=== PATIENT | female | born 1955 | race Caucasian/White ===

== ENCOUNTER 2017-10-04 12:16 | Day surgery (SDC) | payer OTHER ==
[~2017-10-04 12:16] MED LIST: ACETAMINOPHEN 325 MG TABLET (FP) PO PRN
[2017-10-04] MEDS: GENTAMICIN SULFATE 0.3% OPHTHALMIC (EYE DROPS) 5ML BOTTLE ONE ×5 (12:35→12:55)
[2017-10-04] MEDS: KETOROLAC TROMETHAMINE 0.5% 5 ML BOTTLE OPTHALMIC ONE ×5 (12:35→12:55)
[2017-10-04] MEDS: CYCLOPENTOLATE HCL 1% OPHTH SOLN 2 ML BOTTLE ONE ×5 (12:35→12:55)
[2017-10-04] MEDS: PHENYLEPHRINE 2.5% OPHTH SOLN 15 ML BOTTLE ONE ×5 (12:35→12:55)
[2017-10-04] MEDS: TROPICAMIDE 1% OPHTH SOLN 15 ML BOTTLE ONE ×5 (12:35→12:55)
[2017-10-04 12:43] VITALS: BMI 22.6
[2017-10-04] MEDS ORDERED: MIDAZOLAM HCL 2 MG/2 ML SINGLE DOSE VIAL ONE (13:06)
[2017-10-04] MEDS ORDERED: BUPIVACAINE HCL/PF 0.5% (5MG/ML) 10 ML VIAL ONE (13:19)
[2017-10-04] MEDS ORDERED: LIDOCAINE HCL/PF 2% SDV 5ML VIAL ONE ×2 (13:19→13:36)
[2017-10-04] MEDS ORDERED: LIDOCAINE HCL 2% JELLY 10 ML CARTRIDGE ONE (13:20)
[2017-10-04] MEDS ORDERED: PROPOFOL 20 ML ONE (13:36)
[2017-10-04] MEDS ORDERED: ACETYLCHOLINE 1:100 INTRA-OCUL 20 MG/2 ML KIT ONE (13:38)
[2017-10-04] MEDS ORDERED: TETRACAINE 0.5% OPHTH SOLN 2 ML BOTTLE ONE (13:40)
[2017-10-04 14:47] VITALS: TEMP 98
[2017-10-04 15:15] VITALS: BP 111/80; PULSE 59
--- NOTE | 2017-10-04 15:20 | OP ---
DATE OF OPERATION: 10/04/2017 PROCEDURE: Planned extracapsular cataract extraction, phacoemulsification, insertion of posterior chamber lens implant, right eye. SURGEON: Buddy Pugh MD ALARM SIGNAL OPERATOR: Buddy Pugh MD COMPLICATIONS: None. PREOPERATIVE DIAGNOSIS: Cataract, right eye. POSTOPERATIVE DIAGNOSIS: Cataract, right eye. FINDINGS, PROCEDURE: After successful peribulbar anesthesia was given to the right eye, the patient was prepped and draped in the usual manner to expose the right, with Tegaderm strips and a lid speculum inserted and then a microscope brought in position over the right eye. A superior fornix-based flap was then fashioned for 12 mm using Joe scissors and 0.12 forceps and hemostasis achieved with wet-field cautery. A limbal groove was fashioned for approximately 3 mm with a crescent blade, dissected anterior into clear cornea, and then a 3-mm blade was used to enter the anterior chamber. Under Viscoat, 360-degree anterior capsulotomy was performed, a leaflet removed from the eye, and phacoemulsification of entire nucleus was then done approximately 2 minutes time, followed by irrigation and aspiration of all cortical material, leaving intact posterior capsule and a red reflex present. ProVisc was injected in the posterior chamber to deepen the posterior capsule and the implant was inspected carefully, found to be free of defects, debris, and flaws. It was folded and placed in the ProVisc-filled cartridge, the cartridge placed in the injector, the implant injected into the eye such that the inferior haptic was in inferior capsular bag and superior haptic in the superior capsular bag and rotated in the horizontal position with a Sinskey hook. The ProVisc was aspirated out, replaced with Miochol and Miostat and BSS, and the wound was closed with a single interrupted 10-0 Ethilon suture and tested, and the conjunctival Tenon flap reapproximated. The wound had been tested for leakage and none was found at that time. At this point, the implant was fixated in the capsular bag, centrally located with a round pupil, intact posterior capsule, and a red reflex present. Topical Betoptic S and Maxitrol ophthalmic suspensions were placed, as well as bacitracin and polymyxin B ophthalmic ointment, and then the Tegaderm strips and lid speculum were removed from the lids. The lids were closed, a patch and shield placed on the upper eye, and the patient was then discharged from the operating room to the recovery area in good condition, having tolerated the procedure well. Emeterio DANG/[id number]
== END 2017-10-04 15:20 | disposition home or self-care (01) ==
LOC: FASU 12:16
PROVIDERS: ATTEND Ophthalmology
PROC: 08RJ3JZ Replacement of Right Lens with Synthetic Substitute, Percutaneous Approach (ICD-10-PCS; principal; 2017-10-04 13:57)
DX: H26.9 Unspecified cataract (principal)

== ENCOUNTER 2017-11-01 11:09 | Day surgery (SDC) | payer OTHER ==
[2017-10-25 19:28] VITALS: BMI 22.6
[2017-11-01] MEDS: PHENYLEPHRINE 2.5% OPHTH SOLN 15 ML BOTTLE ONE ×5 (11:30→11:50)
[2017-11-01] MEDS: TROPICAMIDE 1% OPHTH SOLN 15 ML BOTTLE ONE ×5 (11:30→11:50)
[2017-11-01] MEDS: GENTAMICIN SULFATE 0.3% OPHTHALMIC (EYE DROPS) 5ML BOTTLE ONE ×5 (11:30→11:50)
[2017-11-01] MEDS: CYCLOPENTOLATE HCL 1% OPHTH SOLN 2 ML BOTTLE ONE ×5 (11:30→11:50)
[2017-11-01] MEDS: KETOROLAC TROMETHAMINE 0.5% 5 ML BOTTLE OPTHALMIC ONE ×5 (11:30→11:50)
[2017-11-01] MEDS ORDERED: MIDAZOLAM HCL 2 MG/2 ML SINGLE DOSE VIAL ONE (11:46)
[2017-11-01] MEDS ORDERED: ACETYLCHOLINE 1:100 INTRA-OCUL 20 MG/2 ML KIT ONE (11:59)
[2017-11-01] MEDS ORDERED: LIDOCAINE HCL/PF 2% SDV 5ML VIAL ONE (11:59)
[2017-11-01] MEDS ORDERED: LIDOCAINE HCL 2% JELLY 10 ML CARTRIDGE ONE (11:59)
[2017-11-01] MEDS ORDERED: BUPIVACAINE HCL/PF 0.5% (5MG/ML) 10 ML VIAL ONE (11:59)
[2017-11-01] MEDS ORDERED: ACETAMINOPHEN 325 MG TABLET (FP) PO PRN (12:00)
[2017-11-01] MEDS ORDERED: BSS (NA/CA/MG/K) BALANCED SALT SOLUTION OPHTH SOLN 15 ML BOTTLE ONE (13:30)
--- NOTE | 2017-11-01 14:29 | OP ---
DATE OF OPERATION: 11/01/2017 TITLE OF THE PROCEDURE: Planned extracapsular cataract extraction, phacoemulsification, insertion of posterior chamber lens implant, left eye. SURGEON: Buddy Cuello MD HOME ORGANIZER SURGEON: Buddy Cuello MD COMPLICATIONS: None. PREOPERATIVE DIAGNOSIS: Cataract, left eye. POSTOPERATIVE DIAGNOSIS: Cataract, left eye. ANESTHESIOLOGIST: Fermin Carrillo MD ANESTHESIA: Local standby. FINDINGS AND PROCEDURE: After successful peribulbar anesthesia was given in soft left eye, the patient was prepped and draped around the left eye in the usual manner. I exposed the left eye. The lid speculum was inserted after the Tegaderm strips were placed on the lashes and the microscope brought in position over the left eye. Superior fornix-based flap was then fashioned for 12 mm using Joe scissors and 0.12 forceps. Hemostasis achieved with electrocautery. A limbal groove was fashioned for 3 mm and dissected anterior into clear cornea. Then, a 3-mm blade was used to enter the anterior chamber. Then, under Viscoat, a 360-degree anterior capsulotomy was performed and leaflet removed from the eye. Then, phacoemulsification done with bimanual technique in approximately 1-1/2 minutes time, followed by irrigation aspiration of all cortical material and an intact posterior capsule and red reflex present. Provisc was injected in the posterior chamber, then deep in the posterior capsule, and then, the implant was inspected carefully with a microscope, found to be free of defects, debris, and flaws. It was folded, placed in the Provisc-filled cartridge. Cartridge placed in the eye, and the implant injected into the eye such that the inferior haptic was in the inferior capsular bag and the superior haptic was in the superior capsular bag and then rotated gently into the 8 o'clock 2 o'clock axis, and then, the Provisc was aspirated out, replaced with Miochol and Miostat and BSS, and the wound was closed with a single 10-0 Ethilon interrupted suture. It was tested for leakage and none was found. The conjunctival tenon flap was reapproximated. At this point, the implant was fixated in the capsular bag, centrally located with the round pupil intact, posterior capsule, and a red reflex present. Topical Betoptic S and Maxitrol ophthalmic suspensions were placed as was Bacitracin, Polymyxin B ophthalmic ointment. Then, the Tegaderm strips and lid speculum were removed from the lids. The lids were closed, and a patch and shield placed on the eye, and the patient was then discharged from the operating room to the recovery area in good condition having tolerated the procedure well. BUDDY CUELLO M.D. [id number]
[2017-11-01 14:37] VITALS: TEMP 98
[2017-11-01 14:46] VITALS: BP 118/78; PULSE 65
== END 2017-11-01 14:20 | disposition home or self-care (01) ==
LOC: FASU 11:09
PROVIDERS: ATTEND Ophthalmology
PROC: 08RK3JZ Replacement of Left Lens with Synthetic Substitute, Percutaneous Approach (ICD-10-PCS; principal; 2017-11-01 12:51)
DX: H26.9 Unspecified cataract (principal)